=== PATIENT | female | born 1985 | race African-American/Black ===

== ENCOUNTER 2017-07-05 21:24 | Emergency (ER) | payer SELFPAY ==
[~2017-07-05] VITALS: Ht 165.1 cm; Wt 74.8 kg
[~2017-07-05 21:24] MED LIST: AZITHROMYCIN250 MG ORAL; IBUPROFEN600 MG ORAL; LEVAQUIN500 MG ORAL; NKM
[2017-07-05 22:10] VITALS: BP 104/74
[2017-07-05] MEDS ORDERED: Dexamethasone 4mg/ml vial IM ONE (22:30)
[2017-07-05] MEDS ORDERED: IBUPROFEN600 MG ORAL (23:09)
[2017-07-05] MEDS ORDERED: AZITHROMYCIN250 MG ORAL (23:09)
--- NOTE | 2017-07-05 23:09 | Emergency Room Report ---
History of Present Illness General Chief Complaint: Upper Respiratory Illness Source: Patient Present Illness HPI This is a 32-year-old female with no past medical history. She presents with complaint of sore throat. Onset yesterday. Pain is to the right side. Worse with swallowing. Pain is 9 out of 10. Also with loss of voice. No nausea no vomiting. Slight cough. Nothing made it better. Swallowing made it worse. Allergies: Coded Allergies: No Known Allergies (Unverified , 08/09/14) Patient History Past Medical History: see triage record, old chart reviewed Past Surgical History: none Pertinent Family History: none Social History: Denies: smoking Now: No Immunizations: other Reviewed Nursing Documentation: PMH: Agreed, PSxH: Agreed Nursing Documentation-PMH Past Medical History: No Stated History Review of Systems Eye: Denies: eye pain, blurred vision ENT: Reports: throat pain, Denies: ear pain, nose congestion, throat swelling Respiratory: Reports: cough, Denies: shortness of breath Cardiovascular: Denies: chest pain, palpitations Gastrointestinal: Denies: abdominal pain, diarrhea, nausea, vomiting Musculoskeletal: Denies: back pain, joint pain Skin: Denies: rash Neurological: Denies: headache, numbness Endocrine: Denies: increased thirst, increased urine Hematologic/Lymphatic: Denies: easy bruising All Other Systems: negative except mentioned in HPI Physical Exam Vital Signs Date Time Temp Pulse Resp B/P (MAP) Pulse Ox O2 Delivery O2 Flow Rate FiO2 07/05/17 22:03 98.9 86 16 104/74 98 Room Air 99.0 vitals with low-grade fever Sp02 EP Interpretation: reviewed, normal General Appearance: well appearing, no apparent distress, alert Head: normocephalic, atraumatic Eyes: bilateral eye PERRL, bilateral eye EOMI ENT: hearing grossly normal, tonsillar swelling, pharyngeal erythema, tonsillar exudate Neck: full range of motion, supple, no meningismus Respiratory: chest non-tender, lungs clear, normal breath sounds Cardiovascular #1: regular rate, rhythm, no murmur Gastrointestinal: normal bowel sounds, non tender, no mass, no organomegaly, no bruit, non-distended Musculoskeletal: back normal, gait/station normal, normal range of motion Psychiatric: mood/affect normal Skin: warm/dry Medical Decision Making Diagnostic Impression: Primary Impression: Acute tonsillitis Qualified Codes: J03.90 - Acute tonsillitis, unspecified ER Course Patient with acute tonsillitis. No evidence of ACS, PE, dissection to name a few. No evidence of peritonsillar abscess or David angina. No evidence of retropharyngeal abscess. Last Vital Signs Date Time Temp Pulse Resp B/P (MAP) Pulse Ox O2 Delivery O2 Flow Rate FiO2 07/05/17 22:10 86 16 Room Air 07/05/17 22:10 99.0 104/74 98 99.0 Status: improved Disposition: HOME, SELF-CARE Condition: Stable Scripts Azithromycin* (ZITHROMAX*) 250 Mg Tablet 250 MG ORAL DAILY, #6 TAB 0 Refills Take two tablets by mouth today, then take one tablet by mouth daily for four days Prov: AYDEN KELLY M.D. 07/05/17 Ibuprofen* (MOTRIN*) 600 Mg Tablet 600 MG ORAL THREE TIMES A DAY, #30 TAB 0 Refills Prov: AYDEN KELLY M.D. 07/05/17 Additional Instructions: Follow-up with your DrJavi in 7 days. Increase fluids. Salt water gargle. Return if worse. AYDEN KELLY M.D. Jul 05, 2017 23:09
[2017-07-05 23:10] VITALS: BP 104/74
== END 2017-07-05 23:30 | disposition home or self-care (01) ==
LOC: EMR 23:16
DX: J03.90 Acute tonsillitis, unspecified (principal)
CPT/HCPCS: 96372; 99284; J1100

== ENCOUNTER 2018-01-20 01:17 | Emergency (ER) | payer SELFPAY ==
[~2018-01-20] VITALS: Ht 167.6 cm; Wt 86.2 kg
[2018-01-20 01:56] VITALS: BP 101/65
[2018-01-20 02:17] VITALS: BP 101/65
--- NOTE | 2018-01-20 03:21 | Emergency Room Report ---
History of Present Illness General Chief Complaint: Headache Source: Patient Present Illness HPI Patient presents reports that she woke up this morning around 7:00 And reports that she was exposed to carbon monoxide At that point she went back to sleep After waking she reports that the appropriate authorities were contacted And she was told that there was some gas leak around where she lives Patient reports that she had taken a hot shower after which she sustained a syncopal episode later that afternoon Also developed a mild headache afterwards And presents for further evaluation Denies any chest pain or shortness of breath Patient reports some mild fatigue Allergies: Coded Allergies: No Known Allergies (Unverified , 08/09/14) Patient History Past Medical History: see triage record Pertinent Family History: none Now: No Reviewed Nursing Documentation: PMH: Agreed; PSxH: Agreed Nursing Documentation-PMH Past Medical History: No Stated History Review of Systems All Other Systems: negative except mentioned in HPI Physical Exam Vital Signs Date Time Temp Pulse Resp B/P (MAP) Pulse Ox O2 Delivery O2 Flow Rate FiO2 01/20/18 01:30 98.8 78 16 105/80 99 Room Air 98.8 Sp02 EP Interpretation: reviewed, normal General Appearance: well appearing, no apparent distress Head: normocephalic, atraumatic Eyes: bilateral eye PERRL, bilateral eye EOMI ENT: hearing grossly normal, normal pharynx, TMs + canals normal, uvula midline Neck: full range of motion, supple, no meningismus, no bony tend Respiratory: lungs clear, normal breath sounds, no rhonchi, no respiratory distress, no retraction, no accessory muscle use Cardiovascular #1: normal peripheral pulses, regular rate, rhythm, no edema, no gallop, no JVD, no murmur Gastrointestinal: normal bowel sounds, non tender, soft, no mass, no organomegaly, non-distended, no guarding, no hernia, no pulsatile mass, no rebound Genitourinary: no CVA tenderness Musculoskeletal: normal inspection Neurologic: oriented x3, responsive, seo professional III-XII nml as tested, motor strength/ tone normal, sensory intact Psychiatric: mood/affect normal Skin: normal color, no rash, warm/dry, palpation normal Lymphatic: normal inspection, no adenopathy Medical Decision Making Diagnostic Impression: Primary Impression: syncope Additional Impression: chemical exposure ER Course Patient's history is somewhat unusual Patient reporting contact with, monoxide however Reporting that she went back to sleep Patient also reports that she was told by authorities that there was gastric but does not specify, monoxide When asked regarding the specifics of the of her complaint regarding, monoxide patient reports that she could smell the carbonmonoxide Covering the patient is awake and alert Hemodynamically stable Neurologically appropriate Patient was advised to avoid contact with any area that she feels has carbon monoxide And patient is otherwise stable for close outpatient follow-up Labs Test 01/20/18 01:30 Urine HCG, Qualitative Negative (NEGATIVE) EKG Diagnostic Results Rate: normal Rhythm: NSR ST Segments: no acute changes Rhythm Strip Diag. Results EP Interpretation: yes Rate: 66 Rhythm: NSR, no PVC's, no ectopy Last Vital Signs Date Time Temp Pulse Resp B/P (MAP) Pulse Ox O2 Delivery O2 Flow Rate FiO2 01/20/18 02:17 97.5 73 19 101/65 100 Room Air Status: improved Disposition: HOME, SELF-CARE Condition: Improved Referrals: NOT CHOSEN IPA/MD,REFERRING (PCP) Patient Instructions: Syncope, [id number] Additional Instructions: Please avoid sleeping in an area which she feel might have carbon monoxide gas. Avoid the area. Patient is provided with the discharge instructions notified to follow up with primary doctor in the next 2-3 days otherwise return to the er with any worsening symptoms. Please note that this report is being documented using [employer] technology. This can lead to erroneous entry secondary to incorrect interpretation by the dictating instrument. Lawrence Del Real DO Jan 20, 2018 03:21
--- NOTE | 2018-01-22 19:50 | Cardiology Report ---
APPROVED REPORT EKG Measurement Heart [id number] Normal sinus rhythm Normal ECG
== END 2018-01-20 02:20 | disposition home or self-care (01) ==
LOC: EMR 01:30
DX: R55 Syncope and collapse (principal); T58.91XA Toxic effect of carbon monoxide from unspecified source, accidental (unintentional), initial encounter; Y92.009 Unspecified place in unspecified non-institutional (private) residence as the place of occurrence of the external cause; R51 Headache
CPT/HCPCS: 81025; 93005; 99283